=== PATIENT | female | born 1955 | race Caucasian/White ===

== ENCOUNTER 2019-10-19 20:48 | Emergency (ER) | payer OTHER ==
[~2019-10-19] VITALS: Ht 154.9 cm; Wt 86.2 kg
[~2019-10-19 20:48] MED LIST: PHENERGAN; SIMVASTATIN
[2019-10-19 21:08] VITALS: BP 147/97
--- NOTE | 2019-10-19 21:15 | NUR ---
PT AMBULATED TO LOBBY WITH VSS.
--- NOTE | 2019-10-19 22:50 | NUR ---
64 Y/O FEMALE BIB DAUGHTER C/O FEVER X3 DAYS, CHEST DISCOMFORT PROVOKED BY COUGH, AND COUGH X2 MONTHS. PT STATES DRY, NON PRODUCTIVE COUGH. RR EVEN AND UNLABORED, NO ACCESSORY MUSCLE USE. PT STATES LOW BACK PAIN, DENIES URINARY SYMPTOMS. PT SITTING IN BED POSITIONED FOR COMFORT, DAUGHTER AT BEDSIDE. VSS MEDHX: HTN, HLD, AND THYROID DISEASE ALLERGIES: NKA
[2019-10-19] MEDS ORDERED: KETOROLAC 30 MG/ML VIAL IM ONE (23:20)
[2019-10-19] MEDS ORDERED: ACETAMIN/CODEINE 120/12MG-5ML 5 ML UDC PO ONE (23:20)
--- NOTE | 2019-10-19 23:35 | NUR ---
MEDICATED WITH 30 MG IM TORADOL AND TYLENOL WITH CODEINE FOR 10 PLEURITIC CHEST PAIN.
--- NOTE | 2019-10-19 23:53 | NUR ---
Patient discharged with v/s stable. Written and verbal after care instructions given and explained. Patient alert, oriented and verbalized understanding of instructions. Ambulatory with steady gait. All questions addressed prior to discharge. ID band removed. Patient advised to follow up with PMD. Rx of naprosyn and guaiatussin given. Patient educated on indication of medication including possible reaction and side effects. Opportunity to ask questions provided and answered.
== END 2019-10-19 23:53 | disposition home or self-care (01) ==
LOC: MED 20:48
DX: J20.9 Acute bronchitis, unspecified (principal); E78.5 Hyperlipidemia, unspecified; I10 Essential (primary) hypertension; E07.9 Disorder of thyroid, unspecified; Z79.899 Other long term (current) drug therapy
CPT/HCPCS: 71045; 87804; 96372; 99284; J1885